=== PATIENT | male | born 1990 ===

== ENCOUNTER → 2020-05-22 | Outpatient (CLI) | payer OTHER ==
[~2020-05-22] MED LIST: CLON0.1T12 PO; LAMO5TB.5 PO; PARO10TA57 PO
--- NOTE | 2020-05-22 10:23 | PAIN ---
DATE OF SERVICE: 05/22/2020 INITIAL CONSULTATION FOR PAIN CLINIC CHIEF COMPLAINT: Low back and right lower extremity pain. HISTORY OF PRESENT ILLNESS: This is a 29-year-old male, who presents with history of pain in the low back and right lower extremity for about 9 years. 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 It has gotten worse over the years. On and off, he has had multiple bouts of physical therapy, counseling, chiropractic treatment and exercise is currently going on. Also, epidural injections several years ago, which were helpful. The patient reports the pain is returning now with walking, standing and changing positions, better with sitting or lying down, but wakes him from sleep at least once or twice a night. The patient reports it can affect his bowel and bladder control, but no loss of continence, has some increased frequency. The patient reports it does affect his ability to walk with significant weakness and pain in the right leg. The patient reports it is constant, sharp, stabbing and shooting in the right lower extremity, posterior gluteus, posterior thigh, posterior calf into the foot and the lateral toes. The patient reports it is radiating with numbness as well. The patient describes his disability rating from 0-10, 10 being the worst, is a 4 with family home responsibilities, 6 with recreation, 8 with occupation and sexual behavior, 2 with social activity and 4 with self-care and 1 with life support activities. The patient has had an MRI scan in the past showing, in 2017, degenerative disk disease, worse at L5-S1, with disk bulging and lumbosacral degenerative disk disease. PAST MEDICAL HISTORY: Significant for hearing loss, glaucoma, eye glasses. PREVIOUS SURGERIES: Include right hand surgery x 2. Otherwise, the patient has been in fairly good health. CURRENT MEDICATIONS: Include [id number] anti-inflammatories. ALLERGIES: The patient has no known drug allergies. FAMILY HISTORY: Of the patient is unknown as he is adopted. SOCIAL HISTORY: The patient does not drink alcohol, does not smoke, does not use any illegal, illicit or recreational drugs. He is single, active , but is in custody in [place], [place]. REVIEW OF SYSTEMS: The patient's review of systems is positive for those items mentioned in history of present illness. All systems reviewed and otherwise negative. It is complete, full and well documented on the patient's chart. PHYSICAL EXAMINATION: VITAL SIGNS: The patient's blood pressure is 118/72, pulse 56, respirations 18, temperature is 98.0 degrees Fahrenheit, height is 71 inches and weight is 162 pounds. GENERAL: The patient is awake, alert, oriented, appropriate, very pleasant demeanor. HEENT: Shows normocephalic, atraumatic. The patient wears eyeglasses. Extraocular movements are intact and symmetrical. Oral cavity: Mucous membranes are moist and pink; dentition is intact. NECK: Shows anterior throat supple without palpable lymphadenopathy noted. Swallow reflex is symmetrical. CHEST: Shows normal on inspection. Breath sounds are clear bilaterally. No rales, rhonchi or wheezes auscultated in the upper and lower lung styles both anteriorly and posteriorly. HEART: Shows S1, S2 clear. No murmurs auscultated. ABDOMEN: Soft, nontender, nondistended. No palpable organomegaly is noted. No rebound or guarding demonstrated. BACK: Shows spine grossly in the midline. Normal-appearing thoracic kyphosis and lumbar lordotic curvature. Lumbar paraspinous musculature shows symmetrical on inspection, on palpation shows some moderate tenderness diffusely in the low lumbar distribution, but only diffusely without specific radiation, without atrophy or hypertrophy, without trigger points. The patient shows no tenderness over the spinous processes, sacrum or sacroiliac regions. The patient has good rotational motion of the lumbar spine, both laterally greater than 10 degrees, right and left, as well as extension greater than 10 degrees and forward flexion 45 degrees without significant pain reported. EXTREMITIES: The patient's lower extremities show deep tendon reflexes at 2+ patellar and 1+ tendo-calcaneus tendons. Motor exam is 4-5 on a scale of 5 with dorsiflexion and extension on the right as well as quadriceps and hamstring flexion on the right, 5/5 on the left. Peripheral pulses are 1+ posterior tibial. No peripheral edema is noted. Lower extremities are warm and dry to touch, equal in color and appearance. The patient is able to stand. He is able to stand on his toes without significant difficulty or loss of balance. He does have a slight favoring gait, favoring the right lower extremity, again more difficult to assess as the patient is in ankle restraints. SKIN: Shows warm and dry, good turgor. No edema. No sores, rashes or bruising throughout. IMPRESSION: 1. This is a 29-year-old male with approximate 9-year history of low back and right lower extremity pain in a radicular fashion. 2. MRI scan report as noted. 3. History of hearing loss. PLAN: Options were discussed with the patient including conservative medical managements, physical therapies and interventional techniques and he would like to pursue interventional techniques. We discussed a lumbar epidural steroid injection using description as well as anatomical models to describe the procedure. The patient will wait for preauthorization with his insurance provider and then return for lumbar epidural steroid injection, translaminar approach, at L5-S1 level, at that time. In the meantime, the patient will continue with stretching and strengthening exercises, and exercise as tolerated. RANDOLPH PURCELL MD DR: LEONARD/dominique JOB#: [id number] / [id number]
== END | disposition home or self-care (01) ==
LOC: PNCL 07:51 → EEVIPCON 08:00
PROVIDERS: ATTEND Anesthesiology
DX: M51.37 Other intervertebral disc degeneration, lumbosacral region (principal); M79.661 Pain in right lower leg; Z79.899 Other long term (current) drug therapy
CPT/HCPCS: G0463

== ENCOUNTER → 2020-11-21 | Outpatient (CLI) | payer OTHER ==
[~2020-11-21] MED LIST changes: +IOHEXOL 180 MG/ML 10 ML VIAL. ONE; +methylPREDNISolone ACETATE 40 MG/ML VIAL. ONE; +methylPREDNISolone ACETATE 80 MG/ML VIAL. ONE
--- NOTE | 2020-11-21 08:23 | PDOC ---
Progress Note - Pain Clinic Date of Service: DOS: DATE: 11/21/20 TIME: 08:20 Diagnosis: Dx: Lumbar radiculopathy with lumbar degenerative disc disease History or Present Illness: HPI: 29-year-old male returns in follow-up status post initial evaluation May 22, 2020 and for lumbar epidural steroid injection. Patient reports still significant pain in the low back and right lower extremity greater than left and present bilaterally now patient reports it is in the posterior gluteus posterior thigh lateral thighs anterior thighs anterior medial thighs medial lower legs posterior calf anterior lower leg and feet bilaterally patient ports worse with walking standing changing positions waking her from sleep several times at night patient rates the pain is a 10 on scale 10 is worse over the past week 6 on average 5 its least and is an 8 today patient which is tingling and stabbing shooting radiating can be constant severe unbearable at times as well. Patient was playing handball and exacerbated the pain more if you months ago and the pain is now both of the lower extremities in a radicular fashion. Patient reports no new motor or sensory deficits no new bowel or bladder incontinence. Physical Exam: VS: Blood pressure is 129/94 pulse 88 respirations 16 temperature 98.1 F height is 71 inches weight is 166 pounds PE: PHYSICAL EXAMINATION: GENERAL: The patient is awake, alert, oriented, appropriate, very pleasant demeanor HEENT: Shows normocephalic, atraumatic. Extraocular movements are intact and symmetrical. Oral cavity: Mucous membranes moist and pink. NECK: Shows anterior throat supple without palpable lymphadenopathy noted. Swallow reflex symmetrical. CHEST: Shows normal on inspection. Breath sounds are clear bilaterally. HEART: Shows S1, S2 clear. No murmurs auscultated. ABDOMEN: Soft, nontender, nondistended. No palpable organomegaly is noted. No rebound or guarding demonstrated. BACK: Shows spine grossly in the midline. Normal-appearing cervical lordotic curvature. There is slightly increased thoracic kyphosis, some minor flattening of the lumbar lordotic curvature. Lumbar paraspinous muscles show symmetrical on inspection, on palpation shows some moderate tenderness diffusely throughout the upper, middle and lower distribution of the paraspinous muscles, but without specific trigger points, without radiation of pain. The patient has good rotational motion of the lumbar spine, both laterally as well as extension and flexion without significant difficulty. EXTREMITIES: Lower extremities show deep tendon reflexes 2+ in the patellar and tendo calcaneus tendons. Motor exam is 4 on a scale of 5 with right dorsiflexion, extension, quadriceps and hamstring flexion and 5/5 on the left. Peripheral pulses are 1+ posterior tibial. No peripheral edema is noted bilaterally. Lower extremities are warm and dry to touch, equal in color and appearance. SKIN: Shows warm and dry, good turgor. No edema. No sores, rashes or bruising throughout. Procedure: Procedure: Options were discussed with the patient. Patient chart reviews his current medication regimen updated current review of systems updated today as well. We will proceed with a lumbar epidural steroid injection today with fluoroscopic guidance. Risks were discussed including but not limited to: Bleeding, infection, possibility of epidural hematoma and subsequent neurological compromise, dural puncture, headaches, spinal cord and/or nerve damage, side effects of steroid medication, and poor results regarding pain control. Patient understands and wished to proceed. Patient will return to clinic in approximate 2 weeks for follow-up was counseled as to return appointment activity level and side effects to be aware of. Medication Injected: Med Injected: Procedure is lumbar epidural steroid injection under local anesthetic using ster ile prep and drape at the L4-5 level using C-arm fluoroscopic guidance in both AP and lateral views medications injected is 120 mg Depo-Medrol + 10 mL preservative-free normal saline and 2 mL contrast- condition at discharge is stable patient tolerated procedure well had no complications. Condition at Discharge: Condition at Discharge: Condition at discharge is stable, patient tolerated the procedure well had no complications. RANDOLPH PURCELL MD Nov 21, 2020 08:23
--- NOTE | 2020-11-21 08:24 | PDOC4 ---
PROCEDURE Procedure Patient was consented for lumbar epidural steroid injection. Risks were dis cussed including but not limited to: Bleeding, infection, possibility of epidural hematoma and subsequent neurological compromise, dural puncture, headaches, spinal cord and/or nerve damage, side effects of steroid medication, and poor results regarding pain control. Patient understands and wished to proceed. Procedure is lumbar epidural steroid injection under local anesthetic using sterile prep and drape at the L4-5 level using C-arm fluoroscopic guidance in both AP and lateral views medications injected is 120 mg Depo-Medrol + 10 mL preservative-free normal saline and 2 mL contrast- condition at discharge is stable patient tolerated procedure well had no complications. RANDOLPH PURCELL MD Nov 21, 2020 08:24
== END | disposition home or self-care (01) ==
LOC: PNCL 07:36
PROVIDERS: ATTEND Anesthesiology
DX: M51.16 Intervertebral disc disorders with radiculopathy, lumbar region (principal); Z79.899 Other long term (current) drug therapy
CPT/HCPCS: 62323; J1030; J1040; Q9965